=== PATIENT | female | born 1985 | race Caucasian/White ===

== ENCOUNTER → 2024-07-15 | Outpatient (CLI) | payer MEDICAID ==
--- NOTE | 2024-07-15 10:28 | CA ---
Exercise Stress Test Report Name: Vesta Alegria Exam Date: 07/15/2024 09:11 Exam Location: [facility] Ht (in): 65 Wt (lb): 178 BSA: 1.88 Ordering Phys: Bradford Jackson MD Referring Phys: BRADFORD JACKSON Technologist: KATIE DUMONT Age: 38 Gender: F : 1985 Procedure CPT: Indications: palpitations ICD-10 Codes: Patient History: Medications: SEE LIST,,, Meds past 24 hrs: Pretest Chest Pain: STRESS TEST [facility] Protocol Exercise Duration (min:sec): 07:[address] Depressions (mm): Angina Score: Gill Score: Resting HR (bpm): 83 Peak HR (bpm): 170 Resting BP (mmHg): 114 / 71 Peak BP (mmHg): 169 / 56 MPHR: 184 Target HR: 156 % MPHR: 92 METS: 8.9 Total Dose: Peak Dose: Atropine: Double Product: 24585 BP Response: Stress Termination: TARGET HR REACHED/MAX EXERTION Stress Symptoms: NO SYMPTOMS Stress Summary: ECG ANALYSIS Resting ECG: Stress ECG: CONCLUSIONS Diagnosis palpitations and PVCs Exercise stress test shows average exercise capacity of 7 minutes Normal heart rate and blood pressure response Intermittent PVCs at rest No arrhythmias with exercise No ST segment abnormalities suggestive of ischemia Dr. Mike Castle MD (Electronically Signed) Final Date: 15 July 2024 10:27
== END | disposition home or self-care (01) ==
LOC: RADECHMAIN 08:42
PROVIDERS: ATTEND Internal Medicine Interventional Cardiology
DX: I49.3 Ventricular premature depolarization (principal); R00.2 Palpitations
CPT/HCPCS: 93017; 93225